=== PATIENT | female | born 1980 | race Hispanic/Latino ===

== ENCOUNTER 2017-09-17 11:38 | Observation (INO) | payer SELFPAY ==
[2017-09-17] MEDS ORDERED: Lactated Ringer's 1,000 ML IV ONE ×2 (12:05→18:20)
[2017-09-17 12:44] LABS: BASO % 0.2 % (0.0-2.0); EOS % 0.3 % (0.0-4.0); HEMOGLOBIN 13.1 g/dL (12.0-16.0); LYMPH # 1.6 K/uL (1.0-4.3); LYMPH % 23.1 % (20.0-40.0); MEAN CELL VOLUME 96.2 fl (81.0-99.0); MEAN CORPUSCULAR HEMOGLOBIN 33.7 pg (27.0-31.0); MEAN CORPUSCULAR HGB CONC 35.1 g/dL (33.0-37.0); MEAN PLATELET VOLUME 9.6 fl (7.2-11.7); MONO # 0.7 K/uL (0.0-0.8); MONO % 10.4 % (0.0-10.0); NEUT # 4.5 K/uL (1.8-7.0); RBC 3.9 Mil/uL (3.80-5.20); WHITE BLOOD COUNT 6.8 K/uL (4.8-10.8)
[2017-09-17] MEDS ORDERED: Silver Nitrate Topical - Stick ONE (15:38)
[2017-09-17] MEDS ORDERED: Bupivacaine HCl 0.25% PF (30 ml) Inj ONE (15:39)
[2017-09-17] MEDS ORDERED: Lidocaine 4% (Laryng-O-Jet) Kit MM ONE (16:33)
[2017-09-17] MEDS ORDERED: Midazolam 2 MG/2 ML VIAL ONE (16:33)
[2017-09-17] MEDS ORDERED: Propofol 10 mg/ml Inj (20 ML) ONE (16:33)
[2017-09-17] MEDS ORDERED: Succinylcholine 200 mg/10 ml Inj IV ONE (16:33)
[2017-09-17] MEDS ORDERED: Sevoflurane - Inhalation Anesthetic Liq (250 ml) ONE (16:33)
[2017-09-17] MEDS ORDERED: Rocuronium 10 mg/ml (5 ml) ONE ×2 (16:34→17:34)
[2017-09-17] MEDS ORDERED: Lidocaine 1% 5ml Abboject IV ONE (16:34)
[2017-09-17] MEDS ORDERED: Dexamethasone 4 mg/1 ml ONE (16:34)
[2017-09-17] MEDS ORDERED: Neostigmine 1:1000 (1 mg/ml) Inj ONE (16:39)
[2017-09-17] MEDS ORDERED: Bupivacaine HCl 0.25% PF (30 ml) Inj IJ ONE (17:41)
[2017-09-17] MEDS ORDERED: Silver Nitrate Topical - Stick TOP ONE (18:02)
[2017-09-17] MEDS ORDERED: Lactated Ringer's 1,000 ML IV SCH (19:00)
[2017-09-17] MEDS ORDERED: HYDROmorphone 0.5 mg/0.5 ml ISec ONE (19:10)
[2017-09-17] MEDS ORDERED: HYDROmorphone 0.5 mg/0.5 ml ISec IVP PRN (19:11)
[2017-09-17] MEDS ORDERED: Acetaminophen IV 1,000 MG in IV SUPPLIES 100 ML IVPB ONE (19:15)
[2017-09-17] MEDS ORDERED: Oxycodone/Acetaminophen 5/325 mg Tab PO PRN (19:34)
[2017-09-17] MEDS: Lactated Ringer's 1,000 ML IV SCH (20:30)
[2017-09-18] MEDS: Lactated Ringer's 1,000 ML IV SCH (05:36)
[2017-09-18 10:46] VITALS: RESP 20
[2017-09-18 13:28] VITALS: BP 104/80; PULSE 80; TEMP 98.8; O2SAT 100
--- NOTE | 2017-09-22 18:46 | OP ---
PROCEDURE DATE: 09/17/2017 SURGEON: Jude Kirkland MD PREOPERATIVE DIAGNOSES: Pelvic pain; dysmenorrhea; dyspareunia; ovarian cyst, rule out endometriosis and endometrioma. POSTOPERATIVE DIAGNOSES: Pelvic pain; dysmenorrhea; dyspareunia; ovarian cyst, left ovarian endometrioma. PROCEDURES PERFORMED: Cystoscopy, injection of dye, diagnostic hysteroscopy, operative robotic da Sheila laparoscopy, excision of endometriosis, and left ovarian cystectomy. ESTIMATED BLOOD LOSS: Minimal. COMPLICATIONS: None. DESCRIPTION OF PROCEDURE: After adequate anesthesia was obtained, the patient was placed in the dorsolithotomy position with extreme care for proper positioning without hyperextending and hyperflexing of the hips. A time-out was taken according to the hospital policy, and the patient was prepped and draped and the procedure was started. A cystoscope was inserted into the bladder. The bladder appeared to be normal without any lesions. 5 mL of Isovue was injected into each ureter. At this point, attention was in the vaginal area. The anterior lip of the cervix was grasped. The cervix was gently dilated, and the hysteroscope was inserted into the uterine cavity. The uterine cavity appeared to be thickened, so I could not really visualize the cavity completely, but I did not see any masses or lesions. At this point, the attention was in the abdomen where an incision was made on the umbilicus with an open laparoscopy technique, and the peritoneum was entered. Under direct visualization, three additional ports were placed in the left upper quadrant, left mid quadrant, and right upper quadrant. The da Sheila robot was docked and the procedure was started. There appeared to be evidence of endometriosis in the pelvis. The left ovary was attached to the pelvic sidewall and on the underside had an area suggestive of endometrioma. Attention first was in the left pelvic sidewall where a larger peritoneum containing endometriosis was excised. This excision extended from the upper margin being the utero-ovarian ligament, all the way down to the uterosacral ligament on the left. The additional tissue was excised from the posterior cervical area and anterior rectal. The excision was then extended on the right hand side where again a large area of peritoneum containing endometriosis was also excised on the right hand side. The left ovary was entered, and an abundant amount of chocolate cyst came out. The bed of the endometrioma was then identified and ovarian endometrioma was excised. In order not to damage the ovary, I opted to utilize the J-plasma to destroy the endometriotic tissue to avoid any thermal damage or any other damage to the ovary. The J-plasma was also used to ablate the cul-de-sac which was done extensively. At this point, we checked for hemostasis and appeared to be excellent. The da Sheila robot was undocked. The instruments were removed. The incisions were closed in layers with 0 PDS for the fascia and 4-0 monocryl for the skin. Jude Kirkland MD
== END 2017-09-18 16:00 | disposition home or self-care (01) ==
LOC: H.OPSURG 11:38 → H.PEDS 21:55
PROVIDERS: ADMIT Obstetrics & Gynecology Reproductive Endocrinology; ATTEND Obstetrics & Gynecology Reproductive Endocrinology
DX: N80.1 Endometriosis of ovary (principal); Z88.6 Allergy status to analgesic agent; Z88.2 Allergy status to sulfonamides; N94.6 Dysmenorrhea, unspecified; N94.10 Unspecified dyspareunia; N83.202 Unspecified ovarian cyst, left side; N80.3 Endometriosis of pelvic peritoneum
CPT/HCPCS: 36415; 49203; 57500; 58940; 85025; 86850; 86900; 88305; C1729; G0378; J0131; J0330; J0690; J1100; J1170; J1885; J2250; J2704; J2710; J2765; J3010; J7030; J7040; J7120